=== PATIENT | female | born 1980 | race Two or more races ===

== ENCOUNTER 2023-04-26 13:26 | Emergency (ER) | payer MEDICAID ==
[~2023-04-26] VITALS: Ht 167.6 cm; Wt 60.0 kg
[2023-04-26 13:40] VITALS: BP 145/86; PULSE 62; RESP 18; TEMP 98; O2SAT 100
[2023-04-26] MEDS ORDERED: CIPR-202 PO (14:07)
[2023-04-26] MEDS ORDERED: FLUC200T PO (14:07)
== END 2023-04-26 14:49 | disposition home or self-care (01) ==
LOC: ER 13:27
DX: H92.03 Otalgia, bilateral (principal)
CPT/HCPCS: 99283

== ENCOUNTER 2023-05-03 13:05 | Emergency (ER) | payer MEDICAID ==
[~2023-05-03] VITALS: Ht 165.1 cm; Wt 60.0 kg
[~2023-05-03 13:05] MED LIST: CIPR-202 PO; FLUC200T PO
[2023-05-03] MEDS ORDERED: CLIN300C71 PO (16:19)
[2023-05-03 16:41] VITALS: BP 112/75; PULSE 60; RESP 18; TEMP 98.1; O2SAT 100
--- NOTE | 2023-05-03 17:09 | NUR ---
HIMS MANAGER ASSESSMENT REVIEWED, BY BEATRICE RN; APPROVED
== END 2023-05-03 16:41 | disposition home or self-care (01) ==
LOC: ER 13:06
DX: H66.92 Otitis media, unspecified, left ear (principal); F12.10 Cannabis abuse, uncomplicated; Z79.899 Other long term (current) drug therapy
CPT/HCPCS: 99283